=== PATIENT | female | born 1965 | race Caucasian/White ===

== ENCOUNTER → 2018-01-29 15:41 | Outpatient (CLI) | payer OTHER, SELFPAY ==
[2018-01-29 18:32] LABS: T4 Total, Thyroxin 12.9 ug/dL (4.8-13.9); Thyroid Stim Hormone (TSH) 0.57 uIU/mL (0.358-3.74)
== END ==
PROVIDERS: Family Provider Family Medicine; PCP Family Medicine; Visit Provider Family Medicine
DX: E03.9 Hypothyroidism, unspecified (principal)
CPT/HCPCS: 36415; 84436; 84443

== ENCOUNTER → 2019-02-24 15:16 | Outpatient (CLI) | payer OTHER, SELFPAY ==
[2019-02-24 18:07] LABS: T4 Total, Thyroxin 10.3 ug/dL (4.8-13.9); Thyroid Stim Hormone (TSH) 1.56 uIU/mL (0.358-3.74)
== END ==
PROVIDERS: Family Provider Family Medicine; PCP Family Medicine; Visit Provider Family Medicine
DX: E03.9 Hypothyroidism, unspecified (principal)
CPT/HCPCS: 36415; 84436; 84443

== ENCOUNTER → 2019-03-31 | Outpatient (CLI) | payer OTHER, SELFPAY ==
--- NOTE | 2019-03-31 16:17 | BI_ITS ---
MAMMOGRAPHY - BILATERAL SCREENING REASON FOR EXAM: Female, 54 years old. Routine annual screening examination. PERTINENT HISTORY: Non-contributory. TECHNIQUE: Digital bilateral breast jayda (3D mammographic acquisition) in the CC and MLO projections. 2-D mediolateral oblique (MLO) and craniocaudad (CC) views of both breasts were obtained. CAD: Full Field Digital Mammography with Computer Added Detection was performed. COMPARISON: Comparison is made with prior outside examination dated February 21, 2018. FINDINGS: Breast Composition: The breasts are heterogeneously dense, which may obscure small masses. There are no dominant masses or suspicious calcifications. No other significant abnormalities are identified. There has been no significant change since the prior study. BI/SCREEN MAMM (CAD) W/JAYDA BILAT IMPRESSION: Stable bilateral screening mammogram. Yearly follow-up mammogram recommended. (A) ASSESSMENT CATEGORY: BIRADS Category 1: Negative. A letter regarding these results will be sent to the patient by the facility within 30 days. Approximately 10% of breast cancers are not detected by mammography. A normal mammogram should not delay biopsy of a clinically suspicious abnormality. [id number] Electronically Signed: Ryan Valadez, at 9:04 EDT , Service support ,
== END | disposition home or self-care (01) ==
LOC: OPBI 16:15
PROVIDERS: Family Provider Family Medicine; PCP Family Medicine; Referring Provider Family Medicine; Visit Provider Family Medicine
DX: Z12.31 Encounter for screening mammogram for malignant neoplasm of breast (principal)
CPT/HCPCS: 77063; 77067

== ENCOUNTER → 2020-03-02 11:02 | Outpatient (CLI) | payer OTHER, SELFPAY ==
[2020-03-02 13:21] LABS: T4 Total, Thyroxin 10.5 ug/dL (4.8-13.9); Thyroid Stim Hormone (TSH) 2.33 uIU/mL (0.358-3.74)
[2020-03-06 01:03] LABS: HPV Reflexed? NOT INDICATED
== END ==
PROVIDERS: PCP Family Medicine; Referring Provider Family Medicine; Visit Provider Family Medicine
DX: Z12.4 Encounter for screening for malignant neoplasm of cervix (principal); E03.9 Hypothyroidism, unspecified
CPT/HCPCS: 36415; 84436; 84443; 88175; G0145

== ENCOUNTER → 2020-05-05 | Outpatient (CLI) | payer OTHER, SELFPAY ==
--- NOTE | 2020-05-05 10:21 | BD_ITS ---
STUDY: DUAL ENERGY X-RAY ABSORPTIOMETRY / DXA REASON FOR EXAM: Female, 55 years old. OYSTER SHUCKER -- USES HRT -- TAKES LEVOTHYROXIN -- DOES HIGH AMOUNT OF EXERCISE -- FAMILY HX OF OSTEO- MOTHER -- ROBERT OF 1.5 INCHES TECHNIQUE: Bone Mineral Density (BMD) measurements of lumbar spine and bilateral hips were obtained. COMPARISON: None. FINDINGS: Lumbar Spine (L1-L4): g/cm2 (1.056) / T-score (-1.0) / Z-score (-0.2) Findings are suggestive of normal bone density with a low fracture risk. Left Femur Total: g/cm2 (0.888) / T-score (-1.0) / Z-score (-0.2) Left Femoral Neck: g/cm2 (0.877) / T-score (-1.2) / Z-score (-0.1) Right Femur Total: g/cm2 (0.849) / T-score (-1.3) / Z-score (-0.6) Right Femoral Neck: g/cm2 (0.883) / T-score (-1.1) / Z-score (-0.1) BD/Dexa Bone Density Study IMPRESSION: The patient is considered osteopenic as outlined below according to World Marco Organization (WHO) criteria with a low fracture risk. Reference Information: The T-score is the number of standard deviations above or below the standard which is normal for young adults at their peak bone mineral density. The World Health Organization (WHO) interprets the T-scores as follows: Above -1 Normal bone density Between -1 and -2.5 Osteopenia Equal to / or below -2.5 Osteoporosis As a practical clinical guideline, osteopenia may be graded as follows: Mild -1 through -1.5 Moderate -1.6 through -2.0 Severe -2.1 through -2.4 The Z-score is the number of standard deviations above or below age-matched controls. A Z-score of less than -1.5 would be considered abnormal. References: 1. NIH Osteoporosis and Related Bone Diseases http://www.osteo.org 2. International Society for Clinical Densitometry http://www.iscd.org 3. National Osteoporosis Foundation http://www.nof.org Electronically Signed: Ryan Valadez, at 8:12 EDT , Service support ,
--- NOTE | 2020-05-05 10:42 | BI_ITS ---
MAMMOGRAPHY - BILATERAL SCREENING 3-D TOMOSYNTHESIS REASON FOR EXAM: Female, 55 years old. Routine screening PERTINENT HISTORY: NO FAM HX -- CURR PREMARIN X 4 YRS -- LT HEMANGIOMA MARKED -- NO SX. TECHNIQUE: 2-D mammograms and 3-D Tomosynthesis of the breast (s) were performed. CAD was performed. COMPARISON: 03/31/2019 FINDINGS: The breast composition is composed of scattered fibroglandular density. Scattered benign calcifications are seen. No dense spiculated masses or suspicious microcalcifications are identified. No architectural distortion is identified. There is no skin thickening or retraction. There has been no significant change since the prior study. BI/SCREENING MAMM (CAD), BILAT IMPRESSION: No mammographic signs of malignancy. Routine yearly mammograms recommended. ASSESSMENT CATEGORY: BIRADS Category 1: Negative. A letter regarding these results will be sent to the patient by the facility within 30 days. FOLLOW UP RECOMMENDATION: Yearly follow up mammogram recommended. (A) Approximately 10% of breast cancers are not detected by mammography. A normal mammogram should not delay biopsy of a clinically suspicious abnormality. Electronically Signed: Yaniv Saldivar MD at 11:46 EDT , Service support ,
== END | disposition home or self-care (01) ==
LOC: OPBD 10:19
PROVIDERS: PCP Family Medicine; Referring Provider Family Medicine; Visit Provider Family Medicine
DX: N95.9 Unspecified menopausal and perimenopausal disorder (principal); E03.9 Hypothyroidism, unspecified; Z12.31 Encounter for screening mammogram for malignant neoplasm of breast
CPT/HCPCS: 77067; 77080

== ENCOUNTER → 2021-04-28 15:52 | Outpatient (CLI) | payer BC, SELFPAY ==
[2021-04-28 18:03] LABS: T4 Total, Thyroxin 12.3 ug/dL (4.8-13.9); Thyroid Stim Hormone (TSH) 0.64 uIU/mL (0.358-3.74)
== END ==
PROVIDERS: PCP Family Medicine; Visit Provider Family Medicine
DX: E03.9 Hypothyroidism, unspecified (principal); N76.0 Acute vaginitis
CPT/HCPCS: 36415; 84436; 84443; 87070; 87205

== ENCOUNTER → 2021-07-05 15:15 | Outpatient (CLI) | payer BC, SELFPAY | PROVIDERS: PCP Family Medicine; Referring Provider Family Medicine; Visit Provider Family Medicine | DX: R05 Cough (principal) | CPT/HCPCS: 87635; U0005; U0003 ==

== ENCOUNTER → 2021-08-16 13:33 | Outpatient (CLI) | payer BC, SELFPAY ==
--- NOTE | 2021-08-16 13:36 | BI_ITS ---
MAMMOGRAPHY - BILATERAL SCREENING REASON FOR EXAM: Female, 56 years old. Routine annual screening examination. PERTINENT HISTORY: Non-contributory. TECHNIQUE: Digital bilateral breast jayda (3D mammographic acquisition) in the CC and MLO projections. 2-D mediolateral oblique (MLO) and craniocaudad (CC) views of both breasts were obtained. CAD: Full Field Digital Mammography with Computer Added Detection was performed. COMPARISON: Comparison is made with prior examination dated 05/05/2020 and 03/31/2019. FINDINGS: Breast Composition: There are scattered areas of fibroglandular density. There are no dominant masses or suspicious calcifications. No other significant abnormalities are identified. There has been no significant change since the prior study. BI/SCRN MAMM (CAD)W/JAYDA BILAT IMPRESSION: Stable bilateral screening mammogram. Yearly follow-up mammogram recommended. (A) ASSESSMENT CATEGORY: BIRADS Category 1: Negative. A letter regarding these results will be sent to the patient by the facility within 30 days. Approximately 10% of breast cancers are not detected by mammography. A normal mammogram should not delay biopsy of a clinically suspicious abnormality. [id number] Electronically Signed: Ryan Valadez MD at 14:16 EDT , Service support ,
== END ==
PROVIDERS: PCP Family Medicine; Referring Provider Family Medicine; Visit Provider Family Medicine
DX: Z12.31 Encounter for screening mammogram for malignant neoplasm of breast (principal)
CPT/HCPCS: 77063; 77067

== ENCOUNTER → 2021-10-04 11:42 | Outpatient (CLI) | payer BC, SELFPAY ==
--- NOTE | 2021-10-04 11:47 | CT_ITS ---
STUDY: CT ABDOMEN AND PELVIS WITH CONTRAST REASON FOR EXAM: Female, 56 years old. 4 day history of acute lower abdominal pain. RADIATION DOSAGE (If Supplied By Facility): CTDIvol = ( 20.30 ) mGy, DLP = ( 498.35 ) mGycm TECHNIQUE: Transaxial images were obtained from the dome of the diaphragm to the symphysis pubis with oral contrast. Oral and amp; IV Gastrografin and amp; 100mL Isovue-300 was administered. Sagittal and coronal images were reconstructed. Individualized dose optimization techniques were used for this CT. COMPARISON: None. FINDINGS: The visualized lung bases are unremarkable. The visualized portions of the heart are within normal limits. Scattered multiple small cysts are seen throughout the liver. Normal gallbladder and extrahepatic biliary system. Normal spleen. Normal pancreas. Normal bilateral adrenal glands. Normal right kidney. There is a 1.7 cm cyst in the posterior inferior pole of the left kidney. There is a 4 mm nonobstructive calculus in the posterior midpole calyx of the left kidney. There is gastric distention due to ingested food and oral contrast. Normal small intestine. There is diverticulosis, with thickening of the colon wall, and pericolonic inflammation changes consistent with acute diverticulitis. Radiographic follow-up is recommended to rule out possible neoplastic involvement. The appendix is visualized and appears normal. Normal abdominal aorta. Normal inferior vena cava. Normal retroperitoneum. Normal urinary bladder. A small amount of free fluid is seen in the cul-de-sac. Normal abdominal wall. There are degenerative changes of the visualized lumbar spine. Anterolisthesis of L3 on L4 and L4 on L5 secondary to facet joint osteoarthritis and hypertrophy. CT/Abdomen/Pelvis WITH Contrast IMPRESSION: Localized thickening with increased markings in the surrounding peritoneal fat of the sigmoid colon suggestive of acute sigmoid diverticulitis. Radiographic follow-up is recommended to make sure there is no underlying neoplastic process. Small amount of free fluid is seen in the pelvis. Small hepatic cysts. Left renal cyst and nonobstructing left intrarenal calculus. Electronically Signed: Ryan Valadez MD at 14:18 EST , Service support ,
== END ==
PROVIDERS: PCP Family Medicine; Referring Provider Family Medicine; Visit Provider Family Medicine
DX: R10.9 Unspecified abdominal pain (principal)
CPT/HCPCS: 74177; Q9967

== ENCOUNTER → 2022-05-07 | Outpatient (CLI) | payer BC, SELFPAY ==
[2022-05-07 12:50] LABS: Thyroid Stim Hormone (TSH) < 0.01 uIU/mL (0.358-3.74)
== END | disposition home or self-care (01) ==
LOC: MFPLAB 10:08
PROVIDERS: PCP Family Medicine; Referring Provider Family Medicine; Visit Provider Family Medicine
DX: E03.9 Hypothyroidism, unspecified (principal)
CPT/HCPCS: 36415; 84443

== ENCOUNTER → 2022-07-09 | Outpatient (CLI) | payer BC, SELFPAY ==
[2022-07-09 15:56] LABS: Thyroid Stim Hormone (TSH) 0.06 uIU/mL (0.358-3.74)
== END | disposition home or self-care (01) ==
LOC: MFPLAB 12:10
PROVIDERS: PCP Family Medicine; Referring Provider Family Medicine; Visit Provider Family Medicine
DX: E03.9 Hypothyroidism, unspecified (principal)
CPT/HCPCS: 36415; 84443

== ENCOUNTER → 2022-09-13 | Outpatient (CLI) | payer BC, SELFPAY ==
--- NOTE | 2022-09-13 09:16 | BI_ITS ---
MAMMOGRAPHY - BILATERAL SCREENING REASON FOR EXAM: Female, 57 years old. Routine annual screening examination. PERTINENT HISTORY: Non-contributory. TECHNIQUE: Digital bilateral breast jayda (3D mammographic acquisition) in the CC and MLO projections. 2-D mediolateral oblique (MLO) and craniocaudad (CC) views of both breasts were obtained. CAD: Full Field Digital Mammography with Computer Added Detection was performed. COMPARISON: Comparison is made with prior study dated 08/16/2021 and 05/05/2020. FINDINGS: Breast Composition: The breasts are heterogeneously dense, which may obscure small masses. There are no dominant masses or suspicious calcifications. No other significant abnormalities are identified. There has been no significant change since the prior study. BI/SCRN MAMM (CAD)W/JAYDA BILAT IMPRESSION: Stable bilateral screening mammogram. Yearly follow-up mammogram recommended. (A) ASSESSMENT CATEGORY: BIRADS Category 1: Negative. A letter regarding these results will be sent to the patient by the facility within 30 days. Approximately 10% of breast cancers are not detected by mammography. A normal mammogram should not delay biopsy of a clinically suspicious abnormality. [id number] Electronically Signed: Ryan Valadez MD at 10:12 EST ,
== END | disposition home or self-care (01) ==
LOC: OPBI 09:14
PROVIDERS: PCP Family Medicine; Visit Provider Family Medicine
DX: Z12.31 Encounter for screening mammogram for malignant neoplasm of breast (principal)
CPT/HCPCS: 77063; 77067

== ENCOUNTER → 2022-09-14 | Outpatient (CLI) | payer BC, SELFPAY ==
[2022-09-14 18:35] LABS: Thyroid Stim Hormone (TSH) 2.73 uIU/mL (0.358-3.74)
== END | disposition home or self-care (01) ==
LOC: MFPLAB 14:49
PROVIDERS: PCP Family Medicine; Referring Provider Family Medicine; Visit Provider Family Medicine
DX: E03.9 Hypothyroidism, unspecified (principal)
CPT/HCPCS: 36415; 84443

== ENCOUNTER 2022-10-22 06:59 | Day surgery (SDC) | payer BC, SELFPAY ==
--- NOTE | 2022-10-22 | COLBX_PTH ---
PATIENT: ANGELA WRIGHT LOC: EN U#:[id number] AGE/SX: 57/F ROOM: RE10/22/[address]: Dr. Angelito Sweeney DO : 1965 BED: DIS: 10/22/2022 SPEC #: [id number] RECD: 10/22/22 13:49 STATUS: REMBERTO REPhilip #: [id number] FROYLAN: 10/22/22 00:[address]: Angelito Sweeney DEPT: SURGICAL PATHOLOGY RECD BY: Shreyas Lopez ENTERED: 10/22/22 13:50 SP TYPE: COLON BX COLIN DR: Dr. Agustina Cody MD Tissues: A - Ileum, NOS B - Sigmoid colon biopsy Procedures: Surgery Specimen Level IV HEADER OPERATION: Colonoscopy ? open access (MAC) with biopsies PRE-OP DIAGNOSIS: Screening TISSUE SUBMITTED: A ? Terminal ileum biopsy, B ? Sigmoid colon biopsy MICROSCOPIC DIAGNOSIS A. Terminal ileum, biopsy: No pathologic change. B. Sigmoid colon, biopsy: Melanosis coli. AM:rebekah 10/23/2022 MICROSCOPIC DESCRIPTION Slides are reviewed. GROSS DESCRIPTION A - Received in fixative is one container labeled with the patient's name and designated terminal ileum biopsy. The specimen consists of multiple irregular fragments of light whalen soft tissue that in aggregate measure 1 x 0.5 x 0.1 cm. The specimen is totally submitted in one cassette. B - Received in fixative is one container labeled with the patient's name and designated sigmoid biopsy. The specimen consists of two irregular fragments of light whalen soft tissue that in aggregate measure 0.6 x 0.2 x 0.1 cm. The specimen is totally submitted in one cassette. / SJ:rebekah 10/22/2022 TC:5 CPT: 99430 x2
--- NOTE | 2022-10-22 07:30 | PCM.HP.STD ---
HPI - General General Date of Admission: 10/22/22 Date of Service: 10/22/22 Chief Complaint: Screening colonoscopy HPI Juan WRIGHT, is a 57 F who presents today for screening colonoscopy. She is not have any abdominal pain. She did not have any vomiting. She not have any chest pain or shortness of breath. She denies any weakness. Overall she is in very good health. COUNT INCLUDES THE [facility] Medical History (Updated 10/17/22 @ 09:30 by Haley Price) Anxiety Back pain Colon polyps Dietary restriction Family history of colon cancer History of diverticulitis History of uterine fibroid Hypothyroid Non-smoker Post-menopausal Thyroid disease Home Medications levothyroxine 75 mcg capsule 75 mcg PO DAILY 08/07/22 [History Last Taken Unknown] Lactobacillus acidophilus 10 billion cell capsule (Probiotic) 10,000 mmu cells PO DAILY 10/17/22 [History Last Taken Unknown] ciprofloxacin HCl 500 mg tablet (Cipro) 500 mg PO BID 10/17/22 [History Last Taken Unknown] metronidazole 500 mg tablet 500 mg PO TID 10/17/22 [History Last Taken Unknown] Allergy/AdvReac Type Severity Reaction Status Date / Time dexamethasone Allergy Low blood Verified 10/17/22 09:21 pressure egg [eggs] Allergy Other Verified 10/17/22 09:21 prochlorperazine Allergy Lethargy Verified 10/17/22 09:21 [From Compazine] Family History (Updated 08/06/22 @ 13:58 by Michelle Lam) Mother Colon cancer CAD (coronary artery disease) Hypertension Irritable bowel Heart disease Father Diabetes Melanoma Surgical History (Updated 08/06/22 @ 13:57 by Michelle Lam) History of bunionectomy of right great toe History of colonoscopy History of endometrial ablation History of foot surgery Hx of arthroscopic knee surgery Hx of LASIK Social History (Updated 08/06/22 @ 13:59 by Michelle Lam) household members: spouse current occupational status: employed Smoking Status: Never smoker alcohol intake: never substance use type: does not use ROS Review of Systems ROS Unobtainable: other Constitutional Constitutional: Denies fatigue, fever(s), poor appetite, weight gain or weight loss ENT HEENT: Denies mouth lesions Cardiovascular Cardiovascular: Denies abdominal bloating, abdominal edema or abdominal pain Respiratory/Chest Respiratory/Chest: Denies change in mental status, change in phlegm color, chest congestion or chest tightness Gastrointestinal Gastrointestinal: Denies belching, bloating, change in bowel habits, change in stool character, chewing difficulty, coffee ground emesis, constipation, cramping, diarrhea, dyspepsia, dysphagia, early satiety, excessive flatus, fecal incontinence, heartburn, hematemesis, hematochezia, hemorrhoids, loose stools, melena, nausea, odynophagia, rectal bleeding, tenesmus, vomiting or weight changes Genitourinary Genitourinary: Denies abdominal discomfort, burning urination or itching Musculoskeletal Musculoskeletal: Reports as per HPI; Denies muscle weakness or myalgias Integumentary Integumentary: Denies jaundice Neurologic Neurologic: Denies lack of coordination or weakness Psychiatric Psychiatric: Denies confusion, depression, memory loss, mood swings, paranoia or suicidal ideation Endocrine Endocrinology: Denies systems reviewed and no addt'l complaints, except as documented Hematologic/Lymphatic Hematologic/Lymphatic: Denies anemia, easy bleeding, easy bruising or lymphadenopathy Allergic/Immunologic Allergic/Immunologic: Denies systems reviewed and no addt'l complaints, except as documented Physical Exam Const alert General Appearance: cooperative Orientation / Consciousness: oriented to person HEENT hearing grossly normal bilaterally Head and Scalp: normal to inspection Face and Sinus: face symmetric Nose: external nose normal Mouth: oral and palatal mucosa normal Eyes conjunctivae normal General Eye: normal appearance of both eyes Neck full ROM General: normal visual inspection Lymph Lymphatic: no lymphadenopathy noted Chest inspection of chest normal and palpation of chest normal Chest: symmetrical chest wall rise Resp normal respiratory effort Effort and Inspection: able to speak in complete sentences Cardio regular rate GI non-distended Percussion: normal to percussion Rectal Exam: deferred Neuro Speech: speech normal Gait (Neuro): normal gait Assessment & Plan Assessment/Plan (1) Encounter for screening for malignant neoplasm of colon: PLAN: She will undergo a screening colonoscopy. She was explained alternatives, risk, benefits including outstanding bleeding, infection, sepsis, perforation, need for emergent surgery . She will have an ASA of 1.
[2022-10-22] MEDS: Lactated Ringers 1,000 ML 15 ML IV (07:34)
[2022-10-22 07:35] VITALS: BP 111/77; PULSE 70; RESP 18; TEMP 36.7; O2SAT 100; BMI 20.5
[2022-10-22 08:30] VITALS: BP 111/77; BP 92/57; PULSE 58; RESP 16; TEMP 36.5; O2SAT 100
[2022-10-22 08:35] VITALS: BP 111/77; BP 90/61; PULSE 55; RESP 16; O2SAT 99
--- NOTE | 2022-10-22 08:35 | OP.CCLET_ITS ---
10/22/2022 Agustina Cody [address] [place] [address] Re : Colonoscopy procedure for Floridalma Coelhoerly Dear Dr. Cody This procedure was performed on Saturday, October 22, 2022. My impressions and recommendations are as follows: Impressions : - Segmental mild inflammation was found in the sigmoid colon secondary to colitis. Biopsied. - Diverticulosis in the recto-sigmoid colon. 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 - The examined portion of the ileum was normal. Biopsied. Recommendations : - Discharge patient to home. - Resume previous diet. - Continue present medications. - Await pathology results. - Repeat colonoscopy in 5 years for surveillance based on pathology results. My findings are described in the full procedure note, which is enclosed. If I can be of further assistance, please feel free to contact me at . Sincerely, Angelito Sweeney, 10/22/2022 8:35:05 AM This report has been signed electronically.
--- NOTE | 2022-10-22 08:35 | OP.COLON_ITS ---
Patient Name: Floridalma Simeon Procedure Date: 10/22/2022 7:57 AM Date of : 1965 Age: 57 Procedure: Colonoscopy Indications: Abdominal pain in the left lower quadrant, Abnormal CT of the GI tract, Diverticulitis Providers: Angelito Sweeney DO Medicines: Monitored Anesthesia Care Patient Profile: This is a 57 year old female. Refer to note in patient chart for documentation of history and physical. Last Colonoscopy: date unknown. Unable to locate last colonoscopy report. Complications: No immediate complications. Procedure: Pre-Anesthesia Assessment: - Prior to the procedure, a History and Physical was performed, and patient medications and allergies were reviewed. The patient is competent. The risks and benefits of the procedure and the sedation options and risks were discussed with the patient. All questions were answered and informed consent was obtained. Patient identification and proposed procedure were verified by the physician in the pre-procedure area. Mental Status Examination: alert and oriented. Airway Examination: normal oropharyngeal airway and neck mobility. Respiratory Examination: clear to auscultation. CV Examination: normal. Prophylactic Antibiotics: The patient does not require prophylactic antibiotics. Prior Anticoagulants: The patient has taken no previous anticoagulant or antiplatelet agents. ASA Grade Assessment: II - A patient with mild systemic disease. After reviewing the risks and benefits, the patient was deemed in satisfactory condition to undergo the procedure. The anesthesia plan was to use monitored anesthesia care (MAC). Immediately prior to administration of medications, the patient was re-assessed for adequacy to receive sedatives. The heart rate, respiratory rate, oxygen saturations, blood pressure, adequacy of pulmonary ventilation, and response to care were monitored throughout the procedure. The physical status of the patient was re-assessed after the procedure. After I obtained informed consent, the scope was passed under direct vision. Throughout the procedure, the patient's blood pressure, pulse, and oxygen saturations were monitored continuously. The Colonoscope was introduced through the anus and advanced to the terminal ileum. The colonoscopy was performed without difficulty. The patient tolerated the procedure well. The quality of the bowel preparation was good. Scope In: 8:06:44 AM Scope Withdrawal Time 0 hours 14 minutes 12 seconds Scope Out: 8:26:00 AM Total Procedure Duration Time 0 hours 19 minutes 16 seconds Findings: The perianal and digital rectal examinations were normal. Segmental mild inflammation characterized by congestion (edema) was found in the sigmoid colon. Biopsies were taken with a cold forceps for histology. Verification of patient identification for the specimen was done. Estimated blood loss was minimal. A few small-mouthed diverticula were found in the recto-sigmoid colon. The retroflexed view of the distal rectum and anal verge was normal and showed no anal or rectal abnormalities. The terminal ileum appeared normal. Biopsies were taken with a cold forceps for histology. Verification of patient identification for the specimen was done. Estimated blood loss was minimal. Impression: - Segmental mild inflammation was found in the sigmoid colon secondary to colitis. Biopsied. - Diverticulosis in the recto-sigmoid colon. 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 - The examined portion of the ileum was normal. Biopsied. Recommendation: - Discharge patient to home. - Resume previous diet. - Continue present medications. - Await pathology results. - Repeat colonoscopy in 5 years for surveillance based on pathology results. Procedure Code(s): --- Professional --- 73241, Colonoscopy, flexible; with biopsy, single or multiple CPT copyright 2017 [employer]. All rights reserved. The codes documented in this report are preliminary and upon manual winder review may be revised to meet current compliance requirements. Angelito Sweeney DO 10/22/2022 8:35:05 AM This report has been signed electronically. Number of Addenda: 0 Note Initiated On: 10/22/2022 7:57 AM
[2022-10-22 08:40] VITALS: BP 111/77; BP 86/59; PULSE 55; RESP 14; O2SAT 100
[2022-10-22 08:45] VITALS: BP 111/77; BP 92/62; PULSE 59; RESP 57; TEMP 36.7; O2SAT 14
[2022-10-22 09:01] VITALS: BP 111/77
== END 2022-10-22 09:22 | disposition home or self-care (01) ==
LOC: EN 07:04 → AC 07:04
PROVIDERS: PCP Family Medicine; Referring Provider Family Medicine; Visit Provider Internal Medicine Gastroenterology
PROC: 0DJD8ZZ Inspection of Lower Intestinal Tract, Via Natural or Artificial Opening Endoscopic (ICD-10-PCS; CPT 45378; principal; 2022-10-22 07:55)
DX: Z12.11 Encounter for screening for malignant neoplasm of colon (principal); K57.90 Diverticulosis of intestine, part unspecified, without perforation or abscess without bleeding; K52.9 Noninfective gastroenteritis and colitis, unspecified; K63.89 Other specified diseases of intestine; E03.9 Hypothyroidism, unspecified; Z79.890 Hormone replacement therapy; Z79.899 Other long term (current) drug therapy; Z78.0 Asymptomatic menopausal state; Z86.010 Personal history of colon polyps; Z80.0 Family history of malignant neoplasm of digestive organs
CPT/HCPCS: 45380; 88305; J7120; J2405

== ENCOUNTER → 2022-11-22 | Outpatient (CLI) | payer BC, SELFPAY ==
[2022-11-22 15:40] LABS: Erythrocyte Sedimentation Rate 6 mm/hr (0-30)
[2022-11-22 15:42] LABS: Absolute Lymphocyte Count 1.64 X10^3/uL (0.83-4.51); Absolute Neutrophil Count 3.8 X10^3/uL (2.0-7.7); Basophil# 0.04 X10^3/uL; Basophil% 0.7 % (0-1); Eosinophil# 0.09 X10^3/uL; Eosinophils% 1.5 % (0-5); Hematocrit 39.7 % (37-47); Hemoglobin 12.7 g/dL (12.0-15.0); Lymphocyte # 1.64 X10^3/ul (0.83-4.51); Lymphocyte % 27.4 % (19-41); Mean Corpuscular Hgb 31.1 pg (27.0-32.0); Mean Corpuscular Volume 97.1 fL (81-99); Mean Platelet Vol. 10.6 fl (6.2-12.0); Monocyte# 0.38 X10^3/uL; Monocyte% 6.4 % (0-10); NRBC Flagged by Analyzer 0 % (0-5); Neutrophil # 3.81 X10^3/uL (2.7-7.7); Neutrophil % 63.7 % (47-70); Platelet Count 167 K/mm3 (150-450); RBC Distribution Width CV 12.9 % (11.6-14.6); RBC Distribution Width SD 46.4 fl (35.1-43.9); Red Blood Count 4.09 M/mm3 (4.2-5.4)
[2022-11-22 17:08] LABS: ALB/GLOB Ratio 0.9 RATIO (0.9-2.4); AST(SGOT) 25 U/L (15-37); Alanine Aminotransfer ALT/SGPT 29 U/L (13-56); Albumin, Serum 3.5 g/dL (3.2-5.0); Alkaline Phosphatase 61 U/L (45-117); Anion Gap 4 (5-15); BUN 20 mg/dL (7-18); BUN/Creat Ratio 21.9 RATIO (10-20); CRP < 2.90 mg/L (0.0-3.0); Calcium,Total 9.3 mg/dL (8.5-10.1); Chloride 102 mmol/L (98-107); Creatinine, Serum 0.91 mg/dL (0.55-1.02); EST Glomerular Filtration Rate 67 mL/min (>60); Est Glom Filt Rate - Afr Amer 81 mL/min (>60); Globulin 3.7 g/dL (2.2-4.2); Glucose 93 mg/dL (74-106); Potassium 3.9 mmol/L (3.5-5.1); Protein, Total 7.2 g/dL (6.4-8.2); Sodium Level 139 mmol/L (136-145)
== END | disposition home or self-care (01) ==
PROVIDERS: PCP Family Medicine; Referring Provider Nurse Practitioner Adult Health; Visit Provider Nurse Practitioner Adult Health
DX: K57.90 Diverticulosis of intestine, part unspecified, without perforation or abscess without bleeding (principal); N39.0 Urinary tract infection, site not specified
CPT/HCPCS: 36415; 80053; 85025; 85652; 86140; 87086; 87088; 87186

== ENCOUNTER → 2022-11-23 | Outpatient (CLI) | payer BC, SELFPAY ==
[2022-11-30 19:07] LABS: Calprotectin, Stool <16 ug/g (0-120)
== END | disposition home or self-care (01) ==
LOC: LAB 14:25
PROVIDERS: PCP Family Medicine; Referring Provider Nurse Practitioner Adult Health; Visit Provider Nurse Practitioner Adult Health
DX: K57.90 Diverticulosis of intestine, part unspecified, without perforation or abscess without bleeding (principal); K58.9 Irritable bowel syndrome, unspecified
CPT/HCPCS: 83630; 83993

== ENCOUNTER → 2023-04-23 | Outpatient (CLI) | payer BC, SELFPAY | END | disposition home or self-care (01) | LOC: MTLAB 08:41 | PROVIDERS: PCP Family Medicine; Referring Provider Family Medicine; Visit Provider Family Medicine | DX: E03.9 Hypothyroidism, unspecified (principal) | CPT/HCPCS: 36415; 84443 ==

== ENCOUNTER → 2023-07-12 | Outpatient (CLI) | payer BC, SELFPAY ==
[2023-07-12 15:08] LABS: Vitamin D,25 Hydroxy 48.9 ng/mL
[2023-07-12 15:13] LABS: T4 Free Direct 1.06 ng/dL (0.76-1.46); Thyroid Stim Hormone (TSH) 2.87 uIU/mL (0.358-3.74)
== END | disposition home or self-care (01) ==
LOC: LAB 14:10
PROVIDERS: PCP Family Medicine; Referring Provider Internal Medicine Endocrinology, Diabetes & Metabolism; Visit Provider Internal Medicine Endocrinology, Diabetes & Metabolism
DX: E06.3 Autoimmune thyroiditis (principal); E55.9 Vitamin D deficiency, unspecified
CPT/HCPCS: 36415; 82306; 84439; 84443

== ENCOUNTER → 2023-08-01 | Outpatient (CLI) | payer BC, SELFPAY ==
[2023-08-01 10:47] LABS: Mucous, Urine 0 SEEN /hpf (<or=2+)
[2023-08-01 11:31] LABS: Color, Urine Straw (Yellow); Glucose, Dipstick Normal (Normal); Ketone-Dipstick Negative (Negative); Leukocyte Esterase-Dipstick 100 /ul (Negative); Nitrite-Dipstick Negative (Negative); Occult Blood-Urine 10 /ul (Negative); Protein-Dipstick Negative (Negative); Specific Gravity, Urine 1.015 (1.002-1.030); Urine Bilirubin Dipstick Negative (Negative); Urine Clarity Clear (Clear); Urine Urobilinogen Normal (Normal)
[2023-08-01 11:40] LABS: Bacteria RARE /hpf (None Seen); Red Blood Cells-Urine 0-5 SEEN /hpf (0-5); Squamous Epithelial Cells - UA 0-5 SEEN /hpf (5-10); White Blood Cells 0-5 SEEN /hpf (0-5)
== END | disposition home or self-care (01) ==
LOC: LAB 10:45
PROVIDERS: PCP Family Medicine; Visit Provider Family Medicine
DX: N39.0 Urinary tract infection, site not specified (principal)
CPT/HCPCS: 81001; 87086; 87088

== ENCOUNTER → 2023-10-11 | Outpatient (CLI) | payer BC, SELFPAY ==
--- OUTSIDE RECORDS SUMMARY | 2023-10-11 11:42 | XMS RPT_ITS | CCD ---
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 Name Role Phone GRISELDA DUKE Unavailable Unavailable GRISELDA DUKE Unavailable Unavailable Allergies Allergy Classification Reported Allergen(s) Allergy Type Date of Onset Reaction(s) Facility (1 source) dexamethasone; Translations: [DEXAMETHASONE] Drug Allergy 06-13-20 09 [facility] (1 source) PROCHLORPERAZINE EDISYLATE; Translations: [PROCHLORPERAZINE EDISYLATE] Propensity to adverse reactions to drug (disorder) 06-13-20 09 [facility] (1 source) ORNADE; Translations: [ORNADE] Propensity to adverse reactions to drug (disorder) 06-13-20 09 [facility] Problems Problem Classification Problem Date Documented Da te Episodic/Chronic Unclassified (1 source) Encounter for screening mammogram for malignant neoplasm of breast; Translations: [Encounter for screening mammogram for malignant neoplasm of breast] Onset: 02-21-2018 Episodic Results Test Name Value Interpretation Reference Range Facil ity Encounters Encounter Date Encounter Type Care Provider Facility Start: 02-21-2018 End: 02-25-2018 Patient encounter GRISELDA DUKE [facility] Summary Purpose Family History No Family History Records Found Advance Directives No Advanced Directives Records Found Additional Source Comments INFORMATION SOURCE (unrecogn ized section and content) FOR RECORDS PERTAINING TO PATIENTS WHO ARE OR HAVE BEEN ENROLLED IN A CHEMICAL DEPENDENCY/SUBSTANCEABUSE PROGRAM, SOME INFORMATION MAY BE OMITTED. This clinical summary was aggregated from multiple sources. Caution should be exercised in using it in the provision of clinical care. This summary normalizes information from multiple sources, and as a consequence, information in this document may materially change the coding, format and clinical context of patient data. In addition, data may be omitted in some cases. CLINICAL DECISIONS SHOULD BE BASED ON THE PRIMARY CLINICAL RECORDS. [facility] provides no warranty or guarantee of the accuracy or completeness of information in this document.
[2023-10-11 12:54] LABS: Cholesterol 232 mg/dL (200); High Density Lipoprotein 63 mg/dL; Rheumatoid Factor < 10.0 IU/mL (<15); Triglycerides 99 mg/dL; Very Low Density Lipoprotein 20 mg/dL (5-40)
[2023-10-11 13:45] LABS: Thyroid Stim Hormone (TSH) 1.73 uIU/mL (0.358-3.74)
[2023-10-12 12:08] LABS: CCP IgG Antibodies 7 units (0-19)
[2023-10-15 12:07] LABS: ANTINUCLEAR ANTIBODIES DIRECT Positive (Negative); Anti-Centromere B Ab <0.2 AI (0.0-0.9); Anti-Chromatin 0.2 AI (0.0-0.9); Anti-Jo <0.2 AI (0.0-0.9); Anti-Scleroderma-70 AB <0.2 AI (0.0-0.9); Anti-dsDNA Ab 1 IU/mL (0-9); RNP Ab 1.5 AI (0.0-0.9); SJOGREN'S Anti-SS-A test 0.3 AI (0.0-0.9); SJOGREN'S Anti-SS-B test 0.2 AI (0.0-0.9); Smith Ab <0.2 AI (0.0-0.9)
== END | disposition home or self-care (01) ==
LOC: BIMLAB 11:21
PROVIDERS: Internal Medicine Endocrinology, Diabetes & Metabolism; PCP Internal Medicine; Visit Provider Internal Medicine
DX: E06.3 Autoimmune thyroiditis (principal); M25.50 Pain in unspecified joint; Z13.6 Encounter for screening for cardiovascular disorders
CPT/HCPCS: 36415; 80061; 84439; 84443; 86038; 86200; 86225; 86235; 86431

== ENCOUNTER → 2024-01-03 | Outpatient (CLI) | payer OTHER, SELFPAY ==
--- NOTE | 2024-01-03 10:48 | BI_ITS ---
MAMMOGRAPHY - BILATERAL SCREENING REASON FOR EXAM: Female, 58 years old. Routine annual screening examination. PERTINENT HISTORY: Non-contributory. TECHNIQUE: Digital bilateral breast jayda (3D mammographic acquisition) in the CC and MLO projections. 2-D mediolateral oblique (MLO) and craniocaudad (CC) views of both breasts were obtained. CAD: Full Field Digital Mammography with Computer Added Detection was performed. COMPARISON: Comparison is made with prior study dated September 13, 2022 and August 16, 2021. FINDINGS: Breast Composition: The breasts are heterogeneously dense, which may obscure small masses. There are no dominant masses or suspicious calcifications. No other significant abnormalities are identified. There has been no significant change since the prior study. BI/SCRN MAMM (CAD)W/JAYDA BILAT IMPRESSION: Stable bilateral screening mammogram. Yearly follow-up mammogram recommended. (A) ASSESSMENT CATEGORY: BIRADS Category 1: Negative. A letter regarding these results will be sent to the patient by the facility within 30 days. Approximately 10% of breast cancers are not detected by mammography. A normal mammogram should not delay biopsy of a clinically suspicious abnormality. [id number] Electronically Signed: Ryan Valadez MD at 12:16 EDT ,
== END | disposition home or self-care (01) ==
PROVIDERS: PCP Internal Medicine; Referring Provider Internal Medicine; Visit Provider Internal Medicine
DX: Z12.31 Encounter for screening mammogram for malignant neoplasm of breast (principal)
CPT/HCPCS: 77063; 77067

== ENCOUNTER → 2024-02-11 | Outpatient (CLI) | payer OTHER, SELFPAY ==
[2024-02-11 17:52] LABS: T4 Free Direct 0.97 ng/dL (0.76-1.46); Thyroid Stim Hormone (TSH) 1.98 uIU/mL (0.358-3.74)
== END | disposition home or self-care (01) ==
LOC: LAB 16:05
PROVIDERS: PCP Internal Medicine; Referring Provider Internal Medicine Endocrinology, Diabetes & Metabolism; Visit Provider Internal Medicine Endocrinology, Diabetes & Metabolism
DX: E06.3 Autoimmune thyroiditis (principal)
CPT/HCPCS: 36415; 84439; 84443

== ENCOUNTER → 2024-05-18 | Outpatient (CLI) | payer OTHER, SELFPAY ==
[2024-05-18 13:17] LABS: Absolute Lymphocyte Count 1.78 X10^3/uL (0.83-4.51); Absolute Neutrophil Count 1.6 X10^3/uL (2.0-7.7); Basophil# 0.05 X10^3/uL; Basophil% 1.3 % (0-1); Eosinophils% 2.7 % (0-5); Hematocrit 41.9 % (37-47); Hemoglobin 13.5 g/dL (12.0-15.0); Lymphocyte # 1.78 X10^3/ul (0.83-4.51); Lymphocyte % 47.3 % (19-41); Mean Corp Hgb Conc 32.2 g/dL (32-36); Mean Corpuscular Hgb 30.9 pg (27.0-32.0); Mean Corpuscular Volume 95.9 fL (81-99); Monocyte# 0.22 X10^3/uL; Monocyte% 5.9 % (0-10); NRBC Flagged by Analyzer 0 % (0-5); Neutrophil % 42.5 % (47-70); Platelet Count 176 K/mm3 (150-450); RBC Distribution Width SD 41.8 fl (35.1-43.9); Red Blood Count 4.37 M/mm3 (4.2-5.4); White Blood Count 3.8 K/mm3 (4.4-11.0)
[2024-05-18 13:48] LABS: AST(SGOT) 33 U/L (15-37); Alanine Aminotransfer ALT/SGPT 39 U/L (13-56); Albumin, Serum 3.6 g/dL (3.2-5.0); Alkaline Phosphatase 73 U/L (45-117); Anion Gap 5 (5-15); BUN 14 mg/dL (7-18); BUN/Creat Ratio 17.6 RATIO (10-20); Calcium,Total 9.2 mg/dL (8.5-10.1); Chloride 104 mmol/L (98-107); Cholesterol 209 mg/dL (200); EST Glomerular Filtration Rate 78 mL/min (>60); Est Glom Filt Rate - Afr Amer 95 mL/min (>60); Estradiol 15.1 pg/mL; Ferritin 88 ng/mL (8-252); Globulin 3.6 g/dL (2.2-4.2); Glucose 86 mg/dL (74-106); High Density Lipoprotein 63 mg/dL; Iron 73 ug/dL (50-170); Protein, Total 7.2 g/dL (6.4-8.2); Sodium Level 140 mmol/L (136-145); Triglycerides 34 mg/dL; Very Low Density Lipoprotein 7 mg/dL (5-40)
[2024-05-20 04:07] LABS: PROGESTERONE <0.1 ng/mL (.)
[2024-05-20 08:13] LABS: DHEA Sulfate 72.4 ug/dL (29.4-220.5)
== END | disposition home or self-care (01) ==
LOC: LABSPEC 12:41
PROVIDERS: PCP Internal Medicine; Referring Provider Nurse Practitioner Family; Visit Provider Nurse Practitioner Family
DX: R53.83 Other fatigue (principal); E06.3 Autoimmune thyroiditis; N95.9 Unspecified menopausal and perimenopausal disorder; K57.92 Diverticulitis of intestine, part unspecified, without perforation or abscess without bleeding; G89.29 Other chronic pain
CPT/HCPCS: 80053; 80061; 82627; 82670; 82728; 83540; 84144; 84403; 85025; 82626

== ENCOUNTER → 2024-06-03 | Outpatient (CLI) | payer OTHER, SELFPAY ==
[2024-06-03 13:39] LABS: Absolute Lymphocyte Count 2.05 X10^3/uL (0.83-4.51); Absolute Neutrophil Count 3.1 X10^3/uL (2.0-7.7); Basophil# 0.05 X10^3/uL; Basophil% 0.9 % (0-1); Eosinophils% 1.8 % (0-5); Hematocrit 43.2 % (37-47); Hemoglobin 13.7 g/dL (12.0-15.0); Lymphocyte # 2.05 X10^3/ul (0.83-4.51); Lymphocyte % 36.5 % (19-41); Mean Corp Hgb Conc 31.7 g/dL (32-36); Mean Corpuscular Hgb 30.7 pg (27.0-32.0); Mean Corpuscular Volume 96.9 fL (81-99); Mean Platelet Vol. 11.4 fl (6.2-12.0); Monocyte# 0.26 X10^3/uL; Monocyte% 4.6 % (0-10); NRBC Flagged by Analyzer 0 % (0-5); Neutrophil # 3.14 X10^3/uL (2.7-7.7); Neutrophil % 55.8 % (47-70); Platelet Count 181 K/mm3 (150-450); RBC Distribution Width CV 12.1 % (11.6-14.6); RBC Distribution Width SD 43.6 fl (35.1-43.9); Red Blood Count 4.46 M/mm3 (4.2-5.4); White Blood Count 5.6 K/mm3 (4.4-11.0)
[2024-06-10 09:09] LABS: CMV Acute Antibody IgM < 30.0 AU/mL (0.0-29.9); CMV Antibody IgG < 0.60 U/mL (0.00-0.59); EBV Acute VCA IgM < 36.0 U/mL (0.0-35.9); EBV Nuclear Antigen IgG > 600.0 U/mL (0.0-17.9); EBV-VCA IgG > 600.0 U/mL (0.0-17.9); Immunoglobulin A 302 mg/dL (87-352); Immunoglobulin E 51 IU/mL (6-495); Immunoglobulin G 1223 mg/dL (586-1602); Immunoglobulin M 220 mg/dL (26-217)
== END | disposition home or self-care (01) ==
PROVIDERS: PCP Internal Medicine; Referring Provider Nurse Practitioner Family; Visit Provider Nurse Practitioner Family
DX: R53.83 Other fatigue (principal); E06.3 Autoimmune thyroiditis; N95.9 Unspecified menopausal and perimenopausal disorder; K57.92 Diverticulitis of intestine, part unspecified, without perforation or abscess without bleeding; D72.819 Decreased white blood cell count, unspecified; G89.29 Other chronic pain
CPT/HCPCS: 82784; 82785; 85025; 86644; 86645; 86664; 86665

== ENCOUNTER → 2024-08-07 | Outpatient (CLI) | payer OTHER, SELFPAY ==
--- OUTSIDE RECORDS SUMMARY | 2024-08-07 12:23 | XMS RPT_ITS | CCD ---
Author Organization [place] [facility] [employer] Care Team Providers Care Indian Trader Name Role Phone GRISELDA DUKE Unavailable Unavailable GRISELDA DUKE Unavailable Unavailable Allergies Allergy Classification Reported Allergen(s) Allergy Type Date of Onset Reaction(s) Facility (1 source) dexamethasone; Translations: [DEXAMETHASONE] Drug Allergy 06-13-20 09 [facility] Repository (1 source) PROCHLORPERAZINE EDISYLATE; Translations: [PROCHLORPERAZINE EDISYLATE] Propensity to adverse reactions to drug (disorder) 06-13-20 09 [facility] Repository (1 source) ORNADE; Translations: [ORNADE] Propensity to adverse reactions to drug (disorder) 06-13-20 09 [facility] Repository Problems Problem Classification Problem Date Documented Da te Episodic/Chronic Unclassified (1 source) Encounter for screening mammogram for malignant neoplasm of breast; Translations: [Encounter for screening mammogram for malignant neoplasm of breast] Onset: 02-21-2018 Episodic Results Test Name Value Interpretation Reference Range Facility [facility] 06-12-2018 CNPN Telephone (WOOB) --BLANCOANGELA Olsen ([id number]) 1965 FDate Time Provider Department06/12/18 MEÑO MAYORGA During your visit today, we recorded the following information about you:Yasmin Finley RN 06/12/2018 2:42 PM SignedPatient calling with c/o symptoms of a yeast infection. Vaginal itching anddischarge. Patient does, however, have some odor with the discharge. She wouldlike a Rx for D[facility]lucan sent to [facility]. Did not try OTC medication. Please signpending rx if appropriate. No need to call patient back unless there is aproblem.Yasmin Mayorga MD 06/12/2018 4:41 PM SignedSigned Diflucan rx. If symptoms do not improve, she should make an apt to beseen in the office.Rubina Mitch CARDONA 06/12/2018 4:43 PM SignedPt notified and will check at pharmacy later today Rubina Meyer LPNAllergies As of Date: 06/12/2018 Noted Allergy ReactionCOMPAZINE (PROCHLORPERAZINE EDISY*06/13/2009DEXAMETHASON E 06/13/2009 Comments: BP dropped and headacheORNADE 06/13/2009 10 - Anaphylaxis Comments: BP dropped and she passed outDate Reviewed: 02/21/2018Reviewed by: Mary Hunter Ma - Fully AssessedReason for Visit: Vaginal Problem [117]Order(s):fluconazole (DIFLUCAN) 150 mg tabletTake 1 tablet by mouth one time only for 1 dose.Disp: 1 tabletRfl: 0Prescriptions as of 06/12/2018 Sig: FLUCONAZOLE 150 MG TABLET Take 1 tablet by mouth one ti* LEVOTHYROXINE 112 MCG TABLET CONJUGATED ESTROGENS 0.625 MG* pea-sized amount qhs 2-3 days*Problem List As Of Date 06/12/2018 Noted Resolved Excessive or frequent menstruation [N92.0] INVALID FOR*06/04/2014 Irregular Menstrual Cycle [N92.6] INVALID FOR* Dyspareunia [WTY9990] INVALID FOR* Unspecified pruritic disorder [L29.9] INVALID FOR*03/05/2011 Leiomyoma of uterus, unspecified [D25.9] INVALID FOR* Fe deficiency anemia [D50.9] INVALID FOR*06/04/2014Prescriptions ordered this encounter Disp Refills Start End FLUCONAZOLE 150 MG TABLET 1 ta* 0 06/12/2018 06/12/2018 Route: ORAL Sig: Take 1 tablet by mouth one time only for 1 dose. Status:Closed by MEÑO MAYORGA MD on 8/30/[address] [facility] 02-21-2018 CNCO HNO ID: [id number] thor: Coordinator, MammographyService: (none)Author Type: PhysicianType: LetterFiled: 02/24/2018 11:33 PMNote Text:February 21, 2018 PID: [id number] Kaylie SimeonJodggp[address] [address]Oekm Ms. Coelhoerly,We are pleased to inform you that the results of your recent breastimaging exam on 02/21/2018 are normal.Your mammogram demonstrates that you have dense breast tissue, which couldhide abnormalities. Dense breast tissue, in and of itself, is arelatively common condition. Therefore, this information is not providedto cause undue concern; rather, it is to raise your awareness and promotediscussion with your health care provider regarding the presence of densebreast tissue in addition to other risk factors. Early detection ofcancer is very important. We also understand recommendations regardingbreast cancer screening are controversial. Please discuss with yourprimary care provider which strategy is best for you and whether amammogram is right for you.Your imaging studies and report [facility] and are available for yourcontinuing care.Thank you for allowing us to help in meeting your health care needs.Sincerely,Dr. NewInterprehesham RadiologistWBaystate Noble Hospital's [facility] (Normal over 40) Normal [facility] CNOVon 02-21-2018 CNOV Office Visit (WOOB) --ANGELA SIMEON ([id number]) 1965 FDate Time Provider Department02/21/18 9:00 AM GRISELDA DUKE During your visit today, we recorded the following information about you: Blood pressure Weight Height 94/58 63 kg 1.607 Griselda Albert 02/21/2018 9:34 AM Yane Simeon is a 52 year old who presents for her annualgynecologic exam without complaints. Doing well w/ vaginal estrogen.Body mass index is 24.43 kg/m?.Postmenopausal: yesHRT use: vaginal only.Last Pap: 2014 normalHPV: 2014 negativeHistory of abnormal pap: NoLast mammogram: 2017 normalHistory of abnormal mammogram: NoSexually active: YesObstetric History T2 L2 SAB0 TAB0 Ectopic0 Multiple0 Live [id number] MEDICAL HISTORYDiagnosis Date- Excessive or frequent menstruation Heavy periods- Fe deficiency anemia- Hypothyroidism- Irregular menstrual cycle Irregular periods- Uterine fibroidPAST SURGICAL HISTORYProcedure Laterality Date- HYSTEROSCOPY BX W/WO DANDC 03/30/2011- KNEE SURGERY HX Left 08/2017 miniscus- NOVASURE 03/30/2011- PAST SURGICAL HISTORY OF 11/2015 and 09/2016 bunion surgery, left footFAMILY HISTORYProblem Relation Age of Onset- Heart Mother pacemaker- Hypertension Mother- Cancer Mother skin- Diabetes Father- Hypertension Father- Parkinson's Disease [OTHER] Maternal Grandmother- Heart Paternal Grandmother heart attack in 60's- Hypertension Paternal Grandmother- Hypertension SisterSOCIAL HISTORYSocial HistorySubstance Use Topics- Smoking status: Never Smoker- Smokeless tobacco: Never Used- Alcohol use NoREVIEW OF SYSTEMSAbdomen: No abdominal pain, nausea, vomiting, diarrhea, or. No bloating,early satiety, indigestion, or increased flatulence. Some constipationBladder: No dysuria, gross hematuria, urinary frequency, urinary urgency, orincontinenceBreast: No breast lumps, nipple d/c, overlying skin changes, redness or skinretractionAllergies and current medication updated:YesEXAM: There were no vitals taken for this visit.GENERAL: pleasant, female in no apparent distressHEENT: Normocephalic, atraumatic, mucus membranes moist and no lesionsNECK: Supple, full range of motion, no adenopathy and thyroid normalDERMATOLOGY: Normal, without lesions, non-icteric and non-hirsuteBREAST: soft, non-tender, symmetric, no dominant mass, normal nipple-areolarcomplex, no lymphadenopathy and no nipple dischargeCHEST: Normal inspiratory effortABDOMEN: soft, non-tender and no massesPELVIC: external genitalia normal, normal Bartholin's glands, urethra, Middlefield'sglands, no vulvar lesions, no cervical lesions, mild cystocele and rectocele,physiologic discharge present, normal appearing perineal body and perianalregionBIMANUAL: uterus normal size, shape and consistency, no adnexal masses andnon-tenderRECTOVAGINAL: deferred.NEURO: alert and oriented x3,exam grossly non-focalEXTREMITIES: normalASSESSMENT/PLAN:1) Health maintenance:Pap/HPV up to date.Mammogram orderedcont. vaginal estrogen2) Follow up one year or sooner as neededReFAHEEM Grantefmariana Provider: SELF [200]Allergies As of Date: 02/21/2018 Noted Allergy ReactionCOMPAZINE (PROCHLORPERAZINE EDISY*06/13/2009DEXAMETHASON E 06/13/2009 Comments: BP dropped and headacheORNADE 06/13/2009 10 - Anaphylaxis Comments: BP dropped and she passed outDate Reviewed: 02/21/2018Reviewed by: Mary Hunter Ma - Fully AssessedVisit Diagnoses:Encounter for gynecological examination (general) (routine) without abnormal findings [Z01.419] Encounter for screening mammogram for breast cancer [Z12.31] Vaginal dryness [N89.8]Order(s):[facility] SCREENING [[id number]] Order #: [id number] FUTURE conjugated estrogens (PREMARIN) vaginal creampea-sized amount qhs 2-3 days a weekDisp: 1 TubeRfl: 3Prescriptions as of 02/21/2018 Sig: CONJUGATED ESTROGENS 0.625 MG* pea-sized amount qhs 2-3 days* LEVOTHYROXINE 112 MCG TABLETProblem List As Of Date 02/21/2018 Noted Resolved Excessive or frequent menstruation [N92.0] INVALID FOR*06/04/2014 Irregular Menstrual Cycle [N92.6] INVALID FOR* Dyspareunia [SCR9442] INVALID FOR* Unspecified pruritic disorder [L29.9] INVALID FOR*03/05/2011 Leiomyoma of uterus, unspecified [D25.9] INVALID FOR* Fe deficiency anemia [D50.9] INVALID FOR*06/04/2014Prescriptions ordered this encounter Disp Refills Start End CONJUGATED ESTROGENS 0.625 MG/GRAM V* 1 Tu* 3 02/21/2018 Sig: pea-sized amount qhs 2-3 days a weekMedications Discontinued During This Encounter levothyroxine sodium(SYNTHROID 75 MC* 0 06/13/2009 02/21/2018 Class: Med Update Route: ORAL Sig: Take one(1) tablet daily. Disc: Dosage adjustment COMPOUNDED PRESCRIPTION 02/21/2018 Class: Historical Med Sig: Lamasil Disc: Reason for discontinue is not on file. LORATADINE (CLARITIN ORAL) 02/21/2018 Class: Historical Med Route: ORAL Sig: Take by mouth. Disc: Reason for discontinue is not on file. PSEUDOEPHEDRINE HCL (SUDAFED ORAL) 02/21/2018 Class: Historical Med Route: ORAL Sig: Take by mouth. Disc: Reason for discontinue is not on file. conjugated estrogens (PREMARIN) vagi* 1 Tu* 3 04/10/2016 02/21/2018 Sig: Use pea sized amount 3 nights a week for 4 weeks then twice a week Disc: Reason for discontinue is not on file.Disposition: Return in 1 year (on 02/21/2019) for Annual Exam.Follow-up and Disposition History RecordedEncounter Number: [id number] Status:Closed by GRISELDA DUKE MD on 02/21/18 Normal [facility] SCREENINGon 02-21-2018 [facility] SCREENING * * *Final Report* * *DATE OF EXAM: Feb 21 2018 9:49AM [facility] [id number] - [facility] SCREENING / REASON: Encounter for screening mammogram for malignant neoplasm of breast * * * * Physician Interpretation * * * *RESULT: #[id number] - ZA SCREENINGBILATERAL DIGITAL SCREENING MAMMOGRAM WITH CAD: 02/21/2018HISTORY: Encounter For Screening Mammogram For Malignant Neoplasm Of Breast\ Screening Mammogram - patient reports NO breast symptoms /priors available for comparison.RESULT:TECHNIQUE: The study was acquired using full field digital technology and interpreted from soft copy.Current study was also evaluated with a Computer Aided Detection (CAD).Comparison is made to exams dated: 10/22/2016 mammogram, 07/14/2015 mammogram, 06/04/2014 mammogram - [facility], and 03/11/2012 mammogram.The tissue of both breasts is heterogeneously dense. This may lower the sensitivity of mammography.No significant masses, calcifications, or other findings are seen in either breast.There has been no significant interval change.IMPRESSION: NEGATIVEThere is no mammographic evidence of malignancy.A 1 year screening mammogram is recommended.Maricruz Espinoza/penrad:02/21/2018 13:08:44Imaging Technologist: Karen GAINES)(Josr), [facility] Iukaletter sent: Normal over 40Mammogram BI-RADS: 1 NegativeTranscriptionist: JahTranscribe Date/Time: Feb 21 2018 9:49ADictated by: MARICRUZ NEW MDThifausto examination was interpreted and the report reviewed and electronically signed by: MARICRUZ NEW MD on Feb 21 2018 1:08PM [id number] Normal [facility] PROGRESSon 02-21-2018 Protein mass conc HNO ID: [id number]: Griselda Duke LService: (none)Author Type: PhysicianType: Progress NotesFiled: 02/21/2018 9:34 AMNote Text:Angela Simeon is a 52 year old who presents for her annualgynecologic exam without complaints. Doing well w/ vaginal estrogen.Body mass index is 24.43 kg/m?.Postmenopausal: yesHRT use: vaginal only.Last Pap: 2014 normalHPV: 2014 negativeHistory of abnormal pap: NoLast mammogram: 2017 normalHistory of abnormal mammogram: NoSexually active: YesObstetric History T2 L2 SAB0 TAB0 Ectopic0 Multiple0 Live [id number] MEDICAL HISTORYDiagnosis Date- Excessive or frequent menstruation Heavy periods- Fe deficiency anemia- Hypothyroidism- Irregular menstrual cycle Irregular periods- Uterine fibroidPAST SURGICAL HISTORYProcedure Laterality Date- HYSTEROSCOPY BX W/WO DANDC 03/30/2011- KNEE SURGERY HX Left 08/2017 miniscus- NOVASURE 03/30/2011- PAST SURGICAL HISTORY OF 11/2015 and 09/2016 bunion surgery, left footFAMILY HISTORYProblem Relation Age of Onset- Heart Mother pacemaker- Hypertension Mother- Cancer Mother skin- Diabetes Father- Hypertension Father- Parkinson's Disease [OTHER] Maternal Grandmother- Heart Paternal Grandmother heart attack in 60's- Hypertension Paternal Grandmother- Hypertension SisterSOCIAL HISTORYSocial HistorySubstance Use Topics- Smoking status: Never Smoker- Smokeless tobacco: Never Used- Alcohol use NoREVIEW OF SYSTEMSAbdomen: No abdominal pain, nausea, vomiting, diarrhea, or. No bloating,early satiety, indigestion, or increased flatulence. Some constipationBladder: No dysuria, gross hematuria, urinary frequency, urinary urgency,or incontinenceBreast: No breast lumps, nipple d/c, overlying skin changes, redness orskin retractionAllergies and current medication updated:YesEXAM: There were no vitals taken for this visit.GENERAL: pleasant, female in no apparent distressHEENT: Normocephalic, atraumatic, mucus membranes moist and no lesionsNECK: Supple, full range of motion, no adenopathy and thyroid normalDERMATOLOGY: Normal, without lesions, non-icteric and non-hirsuteBREAST: soft, non-tender, symmetric, no dominant mass, normalnipple-areolar complex, no lymphadenopathy and no nipple dischargeCHEST: Normal inspiratory effortABDOMEN: soft, non-tender and no massesPELVIC: external genitalia normal, normal Bartholin's glands, urethra,[place]'s glands, no vulvar lesions, no cervical lesions, mild cystocele andrectocele, physiologic discharge present, normal appearing perineal bodyand perianal regionBIMANUAL: uterus normal size, shape and consistency, no adnexal masses andnon-tenderRECTOVAGINAL: deferred.NEURO: alert and oriented x3,exam grossly non-focalEXTREMITIES: normalASSESSMENT/PLAN:1) Health maintenance:Pap/HPV up to date.Mammogram orderedcont. vaginal estrogen2) Follow up one year or sooner as neededGriselda Duke MD Normal [facility] Encounters Encounter Date Encounter Type Care Provider Facility Start: 02-21-2018 End: 02-25-2018 Patient encounter GRISELDA DUKE [facility] Summary Purpose Family History No Family History Records Found Advance Directives No Advanced Directives Records Found Additional Source Comments INFORMATION SOURCE (unrecogn ized section and content) DATE CREATED AUTHOR 06/16/2018 [facility] FOR RECORDS PERTAINING TO PATIENTS WHO ARE [...] BE BASED ON THE PRIMARY CLINICAL RECORDS. [facility] [employer] provides no warranty or guarantee of the accuracy or completeness of information in this document.
[2024-08-07 13:16] LABS: Free T3 2.3 pg/mL (2.18-3.98)
== END | disposition home or self-care (01) ==
PROVIDERS: PCP Internal Medicine; Referring Provider Nurse Practitioner Family; Visit Provider Nurse Practitioner Family
DX: E06.3 Autoimmune thyroiditis (principal)
CPT/HCPCS: 84439; 84481

== ENCOUNTER → 2024-11-20 | Outpatient (CLI) | payer OTHER, SELFPAY ==
[2024-11-22 08:07] LABS: PROGESTERONE 1.2 ng/mL (.)
== END | disposition home or self-care (01) ==
LOC: LABSPEC 12:45
PROVIDERS: PCP Internal Medicine; Referring Provider Nurse Practitioner Family; Visit Provider Nurse Practitioner Family
DX: N95.9 Unspecified menopausal and perimenopausal disorder (principal)
CPT/HCPCS: 84144

== ENCOUNTER → 2025-05-18 | Outpatient (CLI) | payer OTHER, SELFPAY ==
--- NOTE | 2025-05-18 08:14 | BI_ITS ---
EXAM: SCRN MAMM (CAD)W/JAYDA BILAT DATE: 05/18/2025 CLINICAL HISTORY: F, Age 60 y/o , SCREENING No family history. TECHNIQUE: SCRN MAMM (CAD)W/JAYDA BILAT COMPARISON: Prior exam(s) dated January 03, 2024.. FINDINGS: TISSUE DENSITY: The breasts are heterogeneously dense, which may obscure small masses. Bilateral Breast Mammographic Findings: No significant masses, calcifications or other abnormalities are identified. No suspicious masses, areas of developing architectural distortion, or suspicious calcifications. There has been no significant interval change. BI/SCRN MAMM (CAD)W/JAYDA BILAT IMPRESSION: Stable examination OVERALL FINAL ASSESSMENT BI-RADS 1: NEGATIVE. RECOMMENDATION: Routine annual follow-up in 1 Year A letter with findings and recommendations will be mailed to the patient. Reading Location: [id number]
--- NOTE | 2025-05-18 08:14 | BI_ITS ---
EXAM: SCRN MAMM (CAD)W/JAYDA BILAT DATE: 05/18/2025 CLINICAL HISTORY: F, Age 60 y/o , SCREENING No family history. TECHNIQUE: SCRN MAMM (CAD)W/JAYDA BILAT COMPARISON: Prior exam(s) dated January 03, 2024.. FINDINGS: TISSUE DENSITY: The breasts are heterogeneously dense, which may obscure small masses. Bilateral Breast Mammographic Findings: No significant masses, calcifications or other abnormalities are identified. No suspicious masses, areas of developing architectural distortion, or suspicious calcifications. There has been no significant interval change. BI/SCRN MAMM (CAD)W/JAYDA BILAT IMPRESSION: Stable examination OVERALL FINAL ASSESSMENT BI-RADS 1: NEGATIVE. RECOMMENDATION: Routine annual follow-up in 1 Year A letter with findings and recommendations will be mailed to the patient. Reading Location: [id number]
== END | disposition home or self-care (01) ==
PROVIDERS: PCP Nurse Practitioner Family; Referring Provider Nurse Practitioner Family; Visit Provider Nurse Practitioner Family
DX: Z12.31 Encounter for screening mammogram for malignant neoplasm of breast (principal)
CPT/HCPCS: 77063; 77067